=== PATIENT | male | born 1995 | race Caucasian/White ===

== ENCOUNTER 2020-05-03 19:21 | Emergency (ER) | payer MEDICAID ==
[~2020-05-03] VITALS: Ht 170.2 cm; Wt 59.0 kg
[2020-05-03] MEDS ORDERED: SEROQUEL 50 MG50 M1 PO (19:36)
[2020-05-03] MEDS ORDERED: TRAZODONE HCL50 MG PO (19:36)
[2020-05-03] MEDS ORDERED: NEURONTIN100 MG PO (19:36)
[2020-05-03 20:14] LABS: AMP/METHAMP Negative (Negative); BARBITURATES Negative (Negative); BENZODIAZEPINES Negative (Negative); COCAINE Negative (Negative); METHADONE Negative (Negative); OPIATES Negative (Negative); PCP Negative (Negative); THC POSITIVE (Negative)
[2020-05-03 20:27] LABS: HEMATOCRIT 46.9 % (42.0-52.0); HEMOGLOBIN 15.4 gm/dL (14.0-18.0); MCH 31.3 pg (26.0-34.0); MCV 94.8 fL (80.0-100.0); MPV 7.6 fl. (7.2-11.1); NUCLEATED RBCS 0 /100WBC; PLATELET COUNT* 427 thou/uL (150-400); RBC 4.94 mil/uL (4.50-6.00); RDW-CV 13.5 % (10.5-14.5); WBC 20.3 thou/uL (4.0-11.0)
[2020-05-03 20:34] LABS: CALCIUM 9.9 mg/dL (8.5-10.1); POTASSIUM 3.9 mmol/L (3.5-5.1)
[2020-05-03 20:40] LABS: ALBUMIN 4.6 g/dL (3.4-5.0); TOTAL BILIRUBIN 0.5 mg/dL (<0.1-1.0); TOTAL PROTEIN 8.5 g/dL (6.4-8.2)
[2020-05-03 21:53] LABS: ABSOLUTE NEUTROPHILS 16.2 thou/uL (1.6-8.1)
[2020-05-03 21:55] LABS: PLATELET ESTIMATE ADEQUATE
[2020-05-03] MEDS ORDERED: ZOFRAN ODT4 MG PO (22:33)
[2020-05-03 23:24] VITALS: BP 128/62
== END 2020-05-03 23:24 | disposition home or self-care (01) ==
LOC: M.ERS 19:21
PROVIDERS: Personal Emergency Response Attendant
DX: R11.2 Nausea with vomiting, unspecified (principal); Z79.899 Other long term (current) drug therapy